=== PATIENT | male | born 1990 | race Caucasian/White ===

== ENCOUNTER → 2018-12-24 | Outpatient (CLI) | payer OTHER ==
[~2018-12-24] MED LIST: ESCI10TA8 PO
--- NOTE | 2018-12-24 15:18 | RADIOLOGY IMAGING REPORT ---
FACILITY: [facility] [place] PATIENT NAME: Mikal Cortez : 1990 MR: [id number] V: [id number] EXAM DATE: ORDERING PHYSICIAN: CARLOTA NEWBERRY TECHNOLOGIST: Location: [facility] Patient: Mikal Cortez : 1990 Visit/Account:[id number] Date of Sevice: 12/24/2018 MRI right knee without contrast Indication: Knee pain. Skiing injury. MCL sprain. Comparison: None available. Technique: Multiplanar, multisequence MRI examination is performed of the right knee without contrast . Findings: Examination of the medial compartment demonstrates a normal medial meniscus. The articular cartilage surfaces are normal. Examination of the lateral compartment demonstrates a normal lateral meniscus. The articular cartilag e surfaces are normal. Examination of the patellofemoral compartment demonstrates normal patellar and normal trochlear surfa delores. ACL and PCL are intact. There is thickening of the proximal and middle thirds of the MCL. There is mild edema which surrounds the MCL extending from its origin to just beyond the joint line. The anterior superficial fibers are slightly ill-defined as are the deep fibers to the medial meniscus. Findings are compatible with an intermediate grade proximal and middle third MCL sprain. No high-grade tear. Distally the ligament is well seen and is normal. The lateral collateral ligament complex is maintained. The extensor mechanism is intact. A trace joint effusion is seen. There is edema within the subcutaneous tissues along the posterior and lateral margin of the knee jaziel nt. This extends both above and below the joint. No well-defined hematoma. Correlate for focal swelli ng. IMPRESSION: 1. Intact right knee menisci, cruciate ligaments and articular cartilage surfaces. 2. Grade 2 MCL sprain involving the proximal and middle thirds. 3. Trace joint effusion. 4. Nonspecific subcutaneous edema most pronounced along the posterior margin of the knee joint. Corre late with physical exam. Report Dictated By: Chalino Tamayo at 12/24/2018 3:04 PM Report E-Signed By: Chalino Tamayo at 12/24/2018 3:13 PM WSN:[id number]
== END ==
LOC: MRI 00:35
PROVIDERS: ATTEND Emergency Medicine Sports Medicine
DX: M25.561 Pain in right knee (principal); S83.411D Sprain of medial collateral ligament of right knee, subsequent encounter; M25.361 Other instability, right knee